=== PATIENT | male | born 1955 | race Caucasian/White ===

== ENCOUNTER 2018-02-01 06:16 | Day surgery (SDC) | payer OTHER ==
[2018-01-22 11:57] VITALS: BMI 26.4
[2018-02-01] MEDS ORDERED: oxyCODONE HCL 10 MG SUSTAINED ACTING TABLET PO STA (06:56)
[2018-02-01] MEDS ORDERED: methylPREDNISolone ACET (DEPO) 40 MG/1 ML VIAL ONE (07:13)
[2018-02-01] MEDS ORDERED: THROMBIN (RECOMBINANT) 5,000 UNIT VIAL TP ONE (07:13)
[2018-02-01] MEDS ORDERED: LIDOCAINE 1%/EPI 1:100000 (20 ML MULTI DOSE VIAL) ONE (07:14)
[2018-02-01] MEDS ORDERED: DEXAMETHASONE SOD PHOSPHATE/PF 10 MG/ML SDV ONE (07:31)
[2018-02-01] MEDS ORDERED: MIDAZOLAM HCL 2 MG/2 ML SINGLE DOSE VIAL ONE (07:32)
[2018-02-01] MEDS ORDERED: BUPIVACAINE HCL/PF (5 MG/ML) 30 ML VIAL IJ ONE (07:32)
--- NOTE | 2018-02-01 08:03 | HP ---
History & Physical Update - History History: No Change - Physical Physical: No Change - Assessment Assessment: No Change - Plan Plan: No Change
[2018-02-01] MEDS ORDERED: SUCCINYLCHOLINE CHLORIDE 200 MG/10 ML VIAL ONE (08:58)
[2018-02-01] MEDS ORDERED: PROPOFOL 20 ML ONE ×2 (08:58)
[2018-02-01] MEDS ORDERED: ceFAZolin SODIUM 1 GM VIAL ONE (09:10)
[2018-02-01] MEDS ORDERED: ONDANSETRON 4 MG/2 ML VIAL ONE (09:11)
[2018-02-01] MEDS ORDERED: LIDOCAINE 1%/EPI 1:100000 (50 ML MULTI DOSE VIAL) INF ONE (09:21)
[2018-02-01] MEDS ORDERED: GELATIN SPONGE,ABSORBABLE 1 GM PACKET TP ONE (09:46)
[2018-02-01] MEDS ORDERED: THROMBIN (BOVINE) 5,000 UNIT VIAL TP ONE (09:46)
[2018-02-01] MEDS ORDERED: methylPREDNISolone ACET (DEPO) 40 MG/1 ML VIAL IM ONE (09:47)
[2018-02-01] MEDS ORDERED: oxyCODONE HCL 5 MG TABLET PO PRN (10:56)
[2018-02-01] MEDS ORDERED: ONDANSETRON 4 MG/2 ML VIAL IVPUSH PRN (10:56)
[2018-02-01] MEDS ORDERED: LACTATED RINGERS SOLUTION 1,000 ML IV SCH (11:00)
--- NOTE | 2018-02-01 11:06 | OP ---
Operative Note - Note: Operative Date: 02/01/18 Pre-Operative Diagnosis: L2-L4 spinal stenosis with radiculopathy Operation: L2-L4 bilateral laminectomy Post-Operative Diagnosis: Same as Pre-op Surgeon: Roosevelt Walter Adjunct Professor Of English: Ben Retana Anesthesiologist/PLANT PROTECTION OFFICER: Gretchen Macias Anesthesia: Spinal Estimated Blood Loss (mls): 20 Fluid Volume Replaced (mls): 800 Operative Report Dictated: Yes
--- NOTE | 2018-02-01 11:07 | SURG ---
Surgery Railway Shunter Note Railway Shunter: Ben Retana PA-C Date of Service: 02/01/18 Diagnosis: L2-L4 spinal stenosis with radiculopathy Procedure: L2-L4 bilateral laminectomy I was present for the entirety of the operative procedure. For further detail, please refer to operative report. Visit type - Case Type Case Type: Scheduled - New patient This patient is new to me today: Yes Date on this admission: 02/01/18
[2018-02-01] MEDS ORDERED: traMADol HCL 50 MG TABLET PO PRN (11:14)
--- NOTE | 2018-02-01 11:34 | OP ---
DATE OF OPERATION: 02/01/2018 PREOPERATIVE DIAGNOSIS: Spinal stenosis, L2-3, L3-4. POSTOPERATIVE DIAGNOSIS: Spinal stenosis, L2-3, L3-4. PROCEDURE PERFORMED: Laminectomy, L2-3, L3-4. SURGEON: Roosevelt Walter MD SHOT TUBE MACHINE TENDER: ANN MARIE Lu ESTIMATED BLOOD LOSS: 50 mL. INTRAVENOUS FLUIDS: Per Anesthesia. ANESTHESIA: Spinal/TLIP. COMPLICATIONS: There were none. DISPOSITION: Patient brought to the PACU in stable condition. INDICATION FOR SURGERY: Patient is a 62-year-old gentleman who recently had a laminectomy and had done well from his surgery until recently when his pain returned back. X-rays and MRI were completed which showed that he had spinal stenosis above his previous surgery. At this point, we had a discussion regarding risks and benefits. Risks, benefits, and alternatives are discussed, and the patient consented to have another surgery. DESCRIPTION OF PROCEDURE: Patient was brought to the operating room by the Anesthesia staff after appropriate patient identification was performed. Spinal anesthesia was given along with a TLIP block. Patient was positioned to prone on the OR table with all areas of bony prominences well padded at this time. Two needles were placed in his back to thierno off the L2-4 segments. X-ray was taken to confirm this was correct. Needle was removed, and 10 mL of lidocaine with epinephrine was injected into the back. At the time, his back was prepped and draped in a sterile manner. At this point, a timeout was completed, and an incision was made from the top of L2 down to the bottom of L4. Dissection was carried down to the fascia. The fascia was then split open at this time, and appropriate retractors were placed in. A spinal needle was placed onto the L3 lamina to thierno off the L3-4 level. An x-ray was taken to confirm this was correct. Needle was removed, and the intraspinal segment of L2-3 and L3-4 was removed. The spinous processes of L3 was removed. The lamina of L3 was removed. A complete decompression was performed in such that by the end of the procedure the L3 and the L4 nerve roots appeared to be well decompressed. All bleeding was well controlled at this time. Steroids were placed over the nerve root. FloSeal was placed over that. The fascia was closed with a number 1 Vicryl suture. Subcutaneous tissue was closed with 2-0 Vicryl sutures. Skin was closed with 3-0 Monocryl suture. Dermabond was applied. Steri-Strips were applied. Sterile dressing was applied. Patient was placed supine on the OR bed and brought to the PACU in stable condition. Yumiko GHOTRA/[id number] MTDD
[2018-02-01 12:41] VITALS: TEMP 98
[2018-02-01] MEDS ORDERED: ACETAMINOPHEN INJECTION 100 ML IVPB ONE (12:46)
[2018-02-01] MEDS ORDERED: ACETAMINOPHEN 1000 MG/100 ML VIAL (NON FORMULARY) IVPB ONE (13:00)
[2018-02-01 14:23] VITALS: BP 127/65; PULSE 71
== END 2018-02-01 13:15 | disposition home or self-care (01) ==
LOC: FASU 06:16
PROVIDERS: ATTEND Orthopaedic Surgery Orthopaedic Surgery of the Spine
PROC: 01NB0ZZ Release Lumbar Nerve, Open Approach (ICD-10-PCS; principal; 2018-02-01 08:30)
DX: M48.061 Spinal stenosis, lumbar region without neurogenic claudication (principal)
CPT/HCPCS: 72100-TC-FY; 94760; J0131